=== PATIENT | male | born 1985 | race Caucasian/White ===

== ENCOUNTER 2018-07-14 21:39 | Observation (INO) ==
[2018-07-15] MEDS ORDERED: Bupivacaine/Epinephrine PF Inj 0.5% 30 ML Vial ONE (07:27)
--- NOTE | 2018-07-15 07:54 | P.HPGS ---
History of Present Illness Service: Admission HISTORY and physical FOR SURGICAL ATTENDING, DR. MAMADOU RUSH Primary Care Physician: Theo Shaw MD Chief Complaint: Right lower quadrant abdominal pain History of Present Illness: Patient had a 1 day history of right lower quadrant abdominal pain went to the [facility] where a CT scan was done confirming the clinical suspicion of appendicitis he was transferred to the main hospital for surgical treatment He is main complaint is right lower quadrant pain some mild nausea. He had an episode of this a few months ago that lasted about 3 days and then went away - Diagnosis (1) Abnormal CT of the abdomen (2) Right lower quadrant abdominal pain (3) Acute appendicitis Review of Systems All other systems reviewed negative except as stated in HPI PMFSH - History History Provided By: Patient, Significant Other - Medical History Medical History: Medical History (Last Reviewed 07/15/18 @ 07:50 by Mamadou Rush MD) Patient denies medical problems - Surgical History Surgical History: Surgical History (Last Reviewed 07/15/18 @ 07:50 by Mamadou Rush MD) Hx of inguinal hernia surgery Hx of tonsillectomy - Social History I have reviewed the patient's Social History: Yes - Tobacco History Second Hand Smoke Exposure: No Smoking Status: Never smoker - Alcohol History How Often Do You Have a Drink Containing Alcohol: Monthly or less - Substance Use History Substance History: No History of Abuse - Travel History Recent Travel in the [place] Within the Last 8 Weeks: No Recent Travel Out of the Country Within the Last 8 Weeks: No Medications and Allergies Allergies Allergy/AdvReac Type Severity Reaction Status Date / Time No Known Allergies Allergy Verified 07/14/18 21:54 Home Medications Medication Instructions Recorded Confirmed Type No Known Home Medications 07/14/18 07/14/18 History Exam Vital signs: Vital Signs 07/15/18 04:00 Temperature 98.0 F Pulse Rate 74 Respiratory Rate 18 Blood Pressure 108/76 Pulse Oximetry 96 Intake & Output 07/14/18 07/15/18 07/15/18 18:59 06:59 18:59 Intake Total 0 / 0 Balance 0 / 0 Weight 92 kg Intake: Oral 0 / 0 Other: # Voids 1 Weight On Admission 92 kg Narrative: 32-year-old gentleman alert oriented sitting in the bed Pupils equal round eomi Neck is supple no JVD chest clear heart regular rate abdomen exquisitely tender right lower quadrant pinpoint tenderness at McBurney 's point Extremities moves all extremes well no clubbing cyanosis or edema Neurologic exam no focal deficits Results - Labs Laboratory data from [facility] reviewed - Imaging Imaging: CT scan of abdomen CONCLUSION: 1. The appendix originates from the anterior inferior aspect of the cecum is mildly prominent with some slight induration of the surrounding fat could be early appendicitis CT scan - abdomen: report reviewed, image reviewed CT scan - pelvis: report reviewed, image reviewed Caprini VTE Risk Assessment Caprini VTE Risk Assessment: No/Low Risk (score <= 1) Caprini Risk Assessment Model: Point Value = 1 Point Value = 2 Point Value = 3 Point Value = 5 Age 41-60 Minor surgery BMI > 25 kg/m2 Swollen legs Varicose veins or History of unexplained or recurrent spontaneous Oral contraceptives or hormone replacement Sepsis (< 1 month) Serious lung disease, including pneumonia (< 1 month) Abnormal pulmonary function Acute myocardial infarction Congestive heart failure (< 1 month) History of inflammatory bowel disease Medical patient at bed rest Age 61-74 Arthroscopic surgery Major open surgery (> 45 min) Laparoscopic surgery (> 45 min) Malignancy Confined to bed (> 72 hours) Immobilizing plaster cast Central venous access Age >= 75 History of VTE Family history of VTE Factor V Leiden Prothrombin [id number] Lupus anticoagulant Anticardiolipin antibodies Elevated serum homocysteine Heparin-induced thrombocytopenia Other congenital or acquired thrombophilia Stroke (< 1 month) Elective arthroplasty Hip, pelvis, or leg fracture Acute spinal cord injury (< 1 month) Prophylaxis Regimen: Total Risk Factor Score Risk Level Prophylaxis Regimen 0-1 Low Early ambulation 2 Moderate Order ONE of the following: *Sequential Compression Device (SCD) *Heparin 5000 units SQ BID 3-4 Higher Order ONE of the following medications: *Heparin 5000 units SQ TID *Enoxaparin/Lovenox 40 mg SQ daily (WT < 150 kg, CrCl > 30 mL/min) *Enoxaparin/Lovenox 30 mg SQ daily (WT < 150 kg, CrCl > 10-29 mL/min) *Enoxaparin/Lovenox 30 mg SQ BID (WT < 150 kg, CrCl > 30 mL/min) AND/OR *Sequential Compression Device (SCD) 5 or more Highest Order ONE of the following medications: *Heparin 5000 units SQ TID (Preferred with Epidurals) *Enoxaparin/Lovenox 40 mg SQ daily (WT < 150 kg, CrCl > 30 mL/min) *Enoxaparin/Lovenox 30 mg SQ daily (WT < 150 kg, CrCl > 10-29 mL/min) *Enoxaparin/Lovenox 30 mg SQ BID (WT < 150 kg, CrCl > 30 mL/min) AND *Sequential Compression Device (SCD) Assessment and Plan - Assessment (1) Abnormal CT of the abdomen Code(s): R93.5 - Abnormal findings on diagnostic imaging of other abdominal regions, including retroperitoneum Status: Acute (2) Right lower quadrant abdominal pain Code(s): R10.31 - Right lower quadrant pain Status: Acute (3) Acute appendicitis Code(s): K35.80 - Unspecified acute appendicitis Status: Acute Qualifiers: Acute appendicitis type: with localized peritonitis Appendicitis abscess presence: without abscess - Plan At this time were making arrangements in the operating room for laparoscopic appendectomy As discussed with the patient in detail apparently a friend of his recently underwent same surgery so he and his are somewhat familiar Discharge Planning: Yes - Attending Attestation ADMISSION NOTE FOR SURGICAL ATTENDING, DR. MAMADOU RUSH I attest that I had a [id number] encounter with the patient on the same day, and personally performed and documented my assessment and findings in the medical record. The following services were provided during this hospital visit: Chart data review, vital sign assessments/reviewing monitor data Review of consultations notes if present. Medication orders/review and/or management Ordering and/or reviewing lab tests Ordering and/or interpreting/reviewing x-rays and/or diagnostic studies Care of the patient and discussion of the patient with the care team Documentation time To help prompt me to consider important information that might be impacting today's encounter and assessment, Information from prior notes written by myself or my colleagues may have been "brought forward/copy and pasted" into today's note. H&P: Quality - VTE Documentation of Mechanical Device: Intermittent pneumatic compression boot Deep Vein Thrombosis/Pulmonary Embolism Present on Admission: No
--- NOTE | 2018-07-15 08:49 | P.OP ---
- Preoperative Diagnosis (1) Acute appendicitis (2) Abnormal CT of the abdomen (3) Right lower quadrant abdominal pain - Postoperative Diagnosis (1) Acute appendicitis (2) Abnormal CT of the abdomen (3) Right lower quadrant abdominal pain Date of procedure: 07/15/18 Procedure: PREOP DIAGNOSIS: Acute Abdomen with appendicitis POSTOP DIAGNOSIS: Acute Appendicitis PROCEDURE: Laparoscopic Appendectomy ANESTHESIA: Gen. SURGEON: Dr. Crescencio Rush M.D. INDICATIONS: Patient presented with a clinical diagnosis consistent with appendicitis plans are made for above. DESCRIPTION OF PROCEDURE: Patient was brought to the operating room placed under general anesthesia. Patient was given preoperative antibiotics and had sequential compression devices placed to the lower extremities. After prepping the and draping the abdomen with antiseptic. A 10 mm incision is made just in the supraumbilical area the veres needle was inserted and then the saline load test is performed. After insufflating the abdomen with 15 mm of pressure of CO2 a 10 mm trochars and placed in the abdomen. The camera was introduced into the 10 mm port and the other working 5mm ports are placed in the midline, one above the pubic tubercle and one in between the 2 previously placed ports. The Camera is introduced and the appendix can be seen and is obviously inflamed. The appendix which is obviously inflamed is then grasped and the mesentery taken down with harmonic scalpel. Two PDS endo- ties are then placed around the base of the appendix, the appendix is amputated off the cecum and placed in the Endo Catch and pulled out through the umbilicus incision. The umbilical port is closed with 0 Vicryl and the skin at all 3 sites are closed with a 4-0 Vicryl The appendix was obviously inflamed. Gallbladder appeared normal Small bowel appeared normal liver appeared normal Scar in the right inguinal region from hernia repair Anesthesia: GETA Surgeon: Crescencio Rush MD Estimated blood loss (mL): 5 Pathology: other (Appendix)
[2018-07-15] MEDS ORDERED: fentaNYL Citrate Inj 100 MCG/2 ML Ampul ONE (09:04)
[2018-07-15] MEDS ORDERED: *morphine SULFATE 4 MG/ML PERIprocedure ONLY ONE (09:20)
[2018-07-15] MEDS ORDERED: HYDROmorphone PF Inj 0.5 MG/0.5 ML Syringe ONE (09:33)
[2018-07-15 10:49] VITALS: BP 102/69; PULSE 68; RESP 18; TEMP 97.6; O2SAT 95
== END 2018-07-15 10:51 | disposition home or self-care (01) ==
LOC: NEDDLT 21:39 → NEPHCDU 21:39 → N07 07-15 08:52
PROVIDERS: ADMIT Surgery; ATTEND Surgery
PROC: LAPAPPY (ICD-10-PCS; 2018-07-15 08:03)